=== PATIENT | female | born 1960 | race Caucasian/White ===

== ENCOUNTER 2018-11-18 07:29 | Emergency (ER) | payer OTHER ==
--- NOTE | 2018-11-18 08:08 | EDM.PDOC ---
ED HPI GENERAL MEDICAL PROBLEM - General Chief Complaint: Flank Pain Stated Complaint: POSSIBLE KIDNEY STONE Time Seen by Provider: 11/18/18 07:39 Source of Information: Reports: Patient, Family (2 brothers, [id number]), RN Notes Reviewed History Limitations: Reports: No Limitations - History of Present Illness INITIAL COMMENTS - FREE TEXT/NARRATIVE: The patient states that she developed left flank pain, that she describes as a "hard pain", gross hematuria, and decreased urine output overnight. The pain does not radiate. She has had nausea, but no emesis. No recent fever, constipation, or diarrhea. She denies dysuria when she does urinate. The patient states that her symptoms are similar to when she had a kidney stone on the right about 7 years ago. At that time, she passed a stone on her own. The patient's PCP is Dr. Tiffanie Farooq, at [facility]. Left Flank Pain Score (Numeric/FACES): 3 - Related Data Allergies Allergy/AdvReac Type Severity Reaction Status Date / Time amoxicillin Allergy Hives Verified 11/18/18 07:39 tetracycline Allergy Hives Verified 11/18/18 07:39 Home Meds: Home Meds Aspirin 81 mg PO DAILY 11/18/18 [History] Betamethasone/Clotrimazole [Lotrisone] 1 applic .ROUTE DAILY PRN 11/18/18 [ History] Cholecalciferol (Vitamin D3) [Vitamin D3] 1 cap PO DAILY 11/18/18 [History] Escitalopram [Lexapro] 20 mg PO DAILY 11/18/18 [History] Glimepiride 1 mg PO DAILY 11/18/18 [History] Latanoprost 1 drop EYEBOTH DAILY 11/18/18 [History] Lisinopril 2.5 mg PO DAILY 11/18/18 [History] Ondansetron [Zofran ODT] 1 tab PO Q8H PRN #20 tab.dis 11/18/18 [Rx] Pimecrolimus [Elidel] 1 dose TOP DAILY PRN 11/18/18 [History] Pravastatin [Pravachol] 20 mg PO DAILY 11/18/18 [History] Tamsulosin HCl [Flomax] 1 cap PO QAM PRN #7 cap.er.24h 11/18/18 [Rx] Past Medical History Cardiovascular History: Reports: High Cholesterol Genitourinary History: Reports: Renal Calculus, Urinary Incontinence (stress incontinence) [employer]ER History: Reports: Endometriosis Musculoskeletal History: Reports: Osteoarthritis (knee) Psychiatric History: Reports: Depression Endocrine/Metabolic History: Reports: Diabetes, Type II, Obesity/BMI 30+ - Infectious Disease History Infectious Disease History: Reports: Chicken Pox, TB (treated, 1966) - Past Surgical History HEENT Surgical History: Reports: Adenoidectomy, Oral Surgery (wisdom teeth extraction), Tonsillectomy Social & Family History - Tobacco Use Smoking Status *Q: Never Smoker - Caffeine Use Caffeine Use: Reports: Tea - Alcohol Use Alcohol Use History: Yes Alcohol Use Frequency: Socially - Recreational Drug Use Recreational Drug Use: No - Living Situation & Occupation Living situation: Reports: , Alone Occupation: Unemployed ED ROS GENERAL - Review of Systems Review Of Systems: ROS reveals no pertinent complaints other than HPI. ED EXAM, RENAL/ - Physical Exam Exam: See Below Exam Limited By: No Limitations General Appearance: Alert, WD/WN, No Apparent Distress Eye Exam: Bilateral Eye: EOMI, Normal Inspection Ears: Normal External Exam, Hearing Grossly Normal Nose: Normal Inspection Throat/Mouth: Normal Inspection, Normal Lips, Normal Voice, No Airway Compromise Head: Atraumatic, Normocephalic Neck: Normal Inspection, Full Range of Motion Respiratory/Chest: No Respiratory Distress, Lungs Clear, Normal Breath Sounds, No Accessory Muscle Use Cardiovascular: Normal Peripheral Pulses, Regular Rate, Rhythm, No Gallop, No JVD, No Murmur, No Rub GI/Abdominal: Normal Bowel Sounds, Soft, Non-Tender, No Organomegaly, No Distention, No Abnormal Bruit, No Mass, Other (Obese) (Female) Exam: Deferred Rectal (Female) Exam: Deferred Back Exam: Normal Inspection, Full Range of Motion, CVA Tenderness (L) (mild). No: CVA Tenderness (R) Extremities: Normal Inspection, Normal Range of Motion, No Pedal Edema, Normal Capillary Refill Neurological: Alert, Oriented, Normal Cognition, No Motor/Sensory Deficits Psychiatric: Normal Affect Skin Exam: Warm, Dry, Intact, Normal Color, No Rash Course - Vital Signs Last Recorded V/S: Last Vital Signs Temp 36.4 C 11/18/18 07:37 Pulse 60 11/18/18 07:37 Resp 20 11/18/18 07:37 BP 126/59 L 11/18/18 07:37 Pulse Ox 100 11/18/18 07:37 - Orders/Labs/Meds Orders: Active Orders 24 hr Category Date Time Status Urinary Catheter Assessment [RC] ASDIRECTED Care 11/18/18 08:33 Active Urinary Catheter Insertion [Insert Urinary Catheter] [ Care 11/18/18 08:00 Ordered OM.PC] Q24H Labs: Laboratory Tests 11/18/18 Range/Units 08:00 Urine Color Light yellow (Yellow) Urine Appearance Clear (Clear) Urine pH 6.5 (5.0-8.0) Ur Specific [place] 1.015 (1.005-1.030) Urine Protein Trace H (Negative) Urine Glucose (UA) Negative (Negative) Urine Ketones Negative (Negative) Urine Occult Blood 3+ H (Negative) Urine Nitrite Negative (Negative) Urine Bilirubin Negative (Negative) Urine Urobilinogen 0.2 (0.2-1.0) Ur Leukocyte Esterase Trace H (Negative) Urine RBC 20-30 H (0-5) /hpf Urine WBC 0-5 (0-5) /hpf Ur Squamous Epith Cells 0-5 (0-5) /hpf Urine Bacteria Rare (FEW) /hpf Urine Mucus Not seen (FEW) /hpf Meds: Medications Discontinued Medications Generic Name Dose Route Start Last Admin Trade Name Freq PRN Reason Stop Dose Admin Ondansetron HCl 4 mg 11/18/18 08:56 Zofran Odt PO 11/18/18 08:57 ONETIME ONE Tamsulosin HCl 0.4 mg 11/18/18 08:56 Flomax PO 11/18/18 08:57 ONETIME ONE - Re-Assessments/Exams Free Text/Narrative Re-Assessment/Exam: 11/18/18 07:58 The patient may have a left-sided ureterolith, although its also possible that she just has a UTI. I have ordered a urinalysis and a CT of the abdomen and pelvis without contrast. The patient does not believe that she can provide a clean-catch urine sample, therefore we will acquire the urine by quick catheter. In the meantime, patient will drink some fluids to increase her urine production. 11/18/18 08:47 The patient's urinalysis is remarkable for 3+ occult blood with 20-30 RBCs, trace leukocyte esterase with 0-5 mL's, and rare bacteria. This is consistent with a ureterolith, and not consistent with a UTI. 11/18/18 08:53 CT of the abdomen and pelvis without contrast is read by Dr. Davis as: 1. 1.2 cm within the right renal pelvis which could cause intermittent obstruction. 2. Obstructing distal left ureteral stone measuring 6.1 mm located approximately 5-6 cm proximal to the left UVJ. 3. Multiple small nonobstructing calculi within both kidneys. 4. Fatty infiltration within the liver and other incidental findings. 11/18/18 09:08 Test results discussed with the patient, one of her brothers, and her sister-in- law. As above, the patient appears to have a 6.1 mm stone in the left ureter. At this size, she will not likely pass it on her own. The patient will need to see urology, however, she tells me that she will be heading back to [place] tomorrow. I will prescribe Flomax and Zofran. The patient declined an offer for an opioid. I will have her take [id number] ibuprofen, stay adequately hydrated, and strain all of her urine. Departure - Departure Time of Disposition: 09:09 Disposition: Home, Self-Care 01 Condition: Good Clinical Impression: Ureterolithiasis - Discharge Information *PRESCRIPTION DRUG MONITORING PROGRAM REVIEWED*: Not Applicable *COPY OF PRESCRIPTION DRUG MONITORING REPORT IN PATIENT SABRINA: Not Applicable Prescriptions: Ondansetron [Zofran ODT] 1 tab PO Q8H PRN #20 tab.dis PRN Reason: Nausea/Vomiting Tamsulosin HCl [Flomax] 1 cap PO QAM PRN #7 cap.er.24h PRN Reason: Pain Referrals: PCP,Not In Area [Primary Care Provider] - Forms: ED Department Discharge Additional Instructions: You were seen in the emergency room for left flank pain, with blood in your urine and decreased urine output. Workup in the ER included a urinalysis and a CT scan of your abdomen and pelvis without contrast. A CD-ROM of your CT scan images has been provided to you. Your urinalysis showed blood, but no sign of a urinary tract infection. The CT scan found a 6.1 mm stone in your left ureter, about 5-6 cm above your bladder. Based on the size and location of the stone, you will not likely pass it on your own. The CT scan also found a 1.2 cm stone up by your right kidney, which does not appear to be causing problems at this time. Take [id number] ibuprofen, 2-3 tablets (400-600 mg) every 8 hours, with food, as needed for discomfort. Take one tablet of the anti-spasm medicine Flomax every morning, starting tomorrow morning, 11/19/2018, as needed for discomfort. Dissolve one tablet of the anti-nausea medicine Zofran on your tongue up to every 8 hours, as needed for nausea/vomiting. Stay adequately hydrated. It does not really matter what type of fluid you drink. Strain all of your urine. If you capture the stone, take it to your doctor for analysis. Follow-up with a Urologist in [place] at the next available appointment. Take the CD-ROM with you. If any other problems, please do not hesitate to return to the ER. - My Orders Last 24 Hours: My Active Orders 11/18/18 08:00 Urinary Catheter Insertion [Insert Urinary Catheter] [OM.PC] Q24H 11/18/18 08:33 Urinary Catheter Assessment [RC] ASDIRECTED - Assessment/Plan Last 24 Hours: My Active Orders 11/18/18 08:00 Urinary Catheter Insertion [Insert Urinary Catheter] [OM.PC] Q24H 11/18/18 08:33 Urinary Catheter Assessment [RC] ASDIRECTED
--- NOTE | 2018-11-18 08:52 | CT ---
CT abdomen and pelvis Technique: Multiple axial sections were obtained from above the dome of the diaphragm inferiorly through the pubic symphysis. Intravenous and oral contrast was not utilized. Study has been performed as a ureteral stone protocol. Findings: Left kidney shows dilated collecting system as well as dilated left ureter. These findings are caused by 6.1 mm stone within the distal left ureter located approximately 5-6 cm proximal to the UVJ. Multiple small nonobstructing calculi are seen within both kidneys. There is a large calcification measuring 1.2 cm located within the right renal pelvis at the UPJ which is in location to cause intermittent obstruction. Visualized lung bases show nothing acute. Diffuse fatty infiltration is identified throughout the liver. Spleen appears within normal limits. Adrenal glands show no nodule. Pancreas appears within normal limits. Aorta shows no aneurysm with atherosclerotic calcification. No retroperitoneal adenopathy or mesenteric abnormalities are seen. No pelvic mass or adenopathy is seen. Uterus is slightly lobulated compatible fibroid change. No free fluid is seen. Appendix is seen and is normal. Bone window settings were reviewed which shows slight degenerative change scattered throughout the spine. Impression: 1. 1.2 cm within the right renal pelvis which could cause intermittent obstruction. 2. Obstructing distal left ureteral stone measuring 6.1 mm located approximately 5-6 cm proximal to the left UVJ. 3. Multiple small nonobstructing calculi within both kidneys. 4. Fatty infiltration within the liver and other incidental findings. Diagnostic code #3
[2018-11-18] MEDS ORDERED: Tamsulosin 0.4 MG Cap.ER PO ONE (08:56)
[2018-11-18] MEDS ORDERED: Ondansetron 4 MG Tab.DIS PO ONE (08:56)
== END 2018-11-18 09:32 | disposition home or self-care (01) ==
LOC: JD.ED 07:29
DX: N20.2 Calculus of kidney with calculus of ureter (principal); E11.9 Type 2 diabetes mellitus without complications; E66.9 Obesity, unspecified; Z98.890 Other specified postprocedural states; Z79.899 Other long term (current) drug therapy; Z88.1 Allergy status to other antibiotic agents; Z88.8 Allergy status to other drugs, medicaments and biological substances; Z79.82 Long term (current) use of aspirin
CPT/HCPCS: 51701; 74176; 81001; 99284; A9270; 99283